=== PATIENT | male | born 1990 | race Two or more races ===

== ENCOUNTER 2016-06-25 17:40 | Emergency (ER) | payer OTHER ==
[2016-06-25] MEDS ORDERED: IBUPROFEN 600 MG TABLET ONE (18:38)
[2016-06-25] MEDS ORDERED: ACETAMINOPHEN 325 MG TABLET ONE (18:39)
[2016-06-25] MEDS ORDERED: DIAZEPAM 5 MG TABLET ONE (18:40)
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
== END 2016-06-25 19:57 | disposition home or self-care (01) ==
LOC: ED 17:40
DX: S16.1XXA Strain of muscle, fascia and tendon at neck level, initial encounter (principal); R20.9 Unspecified disturbances of skin sensation; V43.52XA Car driver injured in collision with other type car in traffic accident, initial encounter; Y92.411 Interstate highway as the place of occurrence of the external cause
CPT/HCPCS: 72125; 99283 ×2; A9270 ×3